=== PATIENT | male | born 1960 | race Caucasian/White ===

== ENCOUNTER 2017-03-22 08:51 | Inpatient (IN) | payer OTHER ==
[~2017-03-22] VITALS: Ht 182.9 cm; Wt 127.0 kg
[2017-03-22] MEDS ORDERED: HYDROmorphone (DILAUDID) 2 MG/ML VIAL ONE ×2 (09:07→09:24)
[2017-03-22] MEDS ORDERED: DEXAMETHASONE 4 MG/ML SDV (DECADRON) IV ONE (10:00)
[2017-03-22] MEDS ORDERED: morphine INJ 10 MG/ML 1ML (SYR OR VIAL) ONE (10:14)
--- NOTE | 2017-03-22 10:22 | ED General ---
General Chief Complaint: General Problems/Pain Stated Complaint: LOW BACK/HIPS/LEGS PAIN Nursing Triage Note: PT TO ED FROM CANCER CENTER, PT HAS SEVERE PAIN IN LOW BACK AND LEGS, HAS HAD RECENT SURG IN AND FOUND OUT HE HAS CA IN BONE IN L SHOULDER, PT IS IN EXCRUICIATING PAIN IN LOW BACK DOES NOT KNOW IF HE HAS CA Nursing Sepsis Screen: No Definite Risk Source of Information: Patient Exam Limitations: No Limitations History of Present Illness Time Seen by Provider: 09:45 Initial Comments The patient is a 56-year-old white male who was sent from the cancer center to the emergency room. He was to be seen there today for the first time on referral from [facility]. His story begins in mid November with the development of pain in his left shoulder. He has had a previous right rotator cuff injury and surgery and I thought this to be that problem on the left. He reported that in the beginning he used some BenGay with some improvement. 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 In about 10 days he was disabled by the pain in his left shoulder and was sent home. He then had a workup in [place] by orthopedics. And based on the findings he was sent to [facility]. He had a biopsy of the left humeral head in early February with the thought that this might be osteomyelitis. Cultures were negative and path studies showed an ad no CVA of unknown origin. He then returned home and was scheduled for his first visit at the cancer center today. He is been taking morphine XR 30 twice daily plus oxycodone for breakthrough pain. This has been increasingly less effective. He now has severe pain in his low back and pain and sciatica type symptoms down the legs. Timing/Duration: Other (since november) Allergies and Home Medications Allergies Coded Allergies: No Known Drug Allergies (Unverified , 03/22/17) Constitutional: see HPI EENTM: no symptoms reported Respiratory: no symptoms reported Cardiovascular: no symptoms reported Gastrointestinal: loss of appetite, nausea Genitourinary: no symptoms reported Musculoskeletal: see HPI, muscle cramps, muscle twitching Skin: no symptoms reported Psychiatric/Neurological: No Symptoms Reported Hematologic/Lymphatic: No Symptoms Reported Immunological/Allergic: no symptoms reported Past Lortzgh-Irifot-Nbtgui Hx Patient Social History Alcohol Use: Denies Use Recreational Drug Use: Yes (past hx) Smoking Status: Former Smoker Type Used: Cigarettes Recent Foreign Travel: No Contact w/Someone Who Travel: No Recent Infectious Disease Expo: No Recent Hopitalizations: Yes (SURG L SHOULDER KU) Seasonal Allergies Seasonal Allergies: No Physical Exam Vital Signs Vital Sign - Last 12Hours 03/22/17 09:10 Temp 98.0 Pulse 79 Resp 20 B/P (MAP) 125/68 Pulse Ox 96 Capillary Refill : Less Than 3 Seconds General Appearance: Severe Distress Eyes: Bilateral Eye Normal Inspection HEENT: Normal ENT Inspection Neck: Full Range of Motion, Normal Inspection, Non Tender, Supple, Carotid Bruit Respiratory: Chest Non Tender, Lungs Clear, Normal Breath Sounds, No Accessory Muscle Use, No Respiratory Distress Cardiovascular: Regular Rate, Rhythm, No Edema, No Gallop, No JVD, No Murmur, Normal Peripheral Pulses Gastrointestinal: Normal Bowel Sounds, No Organomegaly, No Pulsatile Mass, Non Tender, Soft Extremity: Normal Capillary Refill, Normal Inspection, Normal Range of Motion, Non Tender, No Calf Tenderness, No Pedal Edema Skin: Normal Color, Warm/Dry Lymphatic: No Adenopathy Comments He purposely does not move the left arm or shoulder Progress/Results/Core Measures Results/Orders My Orders Orders - ALYSON CAR MD Hydromorphone Injection (Dilaudid Inject (03/22/17 09:07) Hydromorphone Injection (Dilaudid Inject (03/22/17 09:24) Dexamethasone Injection (Decadron Inject (03/22/17 10:00) Cbc With Automated Diff (03/22/17 10:07) Comprehensive Metabolic Panel (03/22/17 10:07) Ua Culture If Indicated (03/22/17 10:07) Medications Given in ED Current Medications Medications Dose Ordered Sig/Darlin Route Start Time Stop Time Status Last Admin Dose Admin Dexamethasone Sodium Phosphate 10 mg ONCE ONCE IV 03/22/17 10:00 03/22/17 10:01 DC 03/22/17 09:57 10 MG Hydromorphone HCl 2 mg STK-MED ONCE .ROUTE 03/22/17 09:07 03/22/17 09:11 DC 03/22/17 09:15 2 MG Hydromorphone HCl 2 mg STK-MED ONCE .ROUTE 03/22/17 09:24 03/22/17 09:28 DC 03/22/17 09:30 2 MG Vital Signs/I&O Vital Sign - Last 12Hours 03/22/17 09:10 Temp 98.0 Pulse 79 Resp 20 B/P (MAP) 125/68 Pulse Ox 96 Blood Pressure Mean: 87 Departure Impression Impression: 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 Referrals: NO,LOCAL PHYSICIAN (PCP/Family) Primary Care Physician ALYSON CAR MD March 22, 2017 10:22
[2017-03-22 10:26] LABS: BASOPHILS % (AUTO) 0 % (0-10); EOSINOPHILS # (AUTO) 0.1 10^3/uL (0.0-0.3); EOSINOPHILS % (AUTO) 1 % (0-10); LYMPHOCYTES # (AUTO) 2.9 X 10^3 (1.0-4.0); LYMPHOCYTES % (AUTO) 14 % (12-44); MEAN CORPUSCULAR HEMOGLOBIN 30 PG (25-34); MEAN CORPUSCULAR HGB CONC 34 G/DL (32-36); MEAN CORPUSCULAR VOLUME 88 FL (80-99); MEAN PLATELET VOLUME 10.3 FL (7.4-10.4); MONOCYTES # (AUTO) 1.4 X 10^3 (0.0-1.0); MONOCYTES % (AUTO) 7 % (0-12); NEUTROPHILS # (AUTO) 16.6 X 10^3 (1.8-7.8); NEUTROPHILS % (AUTO) 79 % (42-75); PLATELET COUNT 359 10^3/uL (130-400); RED BLOOD COUNT 4.45 10^6/uL (4.35-5.85); RED CELL DISTRIBUTION WIDTH 13.7 % (10.0-14.5)
[2017-03-22] MEDS ORDERED: morphine PCA 30 MG/30 ML VIAL IV PRN (10:30)
[2017-03-22 10:47] LABS: ALANINE AMINOTRANSFERASE 18 U/L (0-55); ALBUMIN 3.9 G/DL (3.2-4.5); ANION GAP 12 MMOL/L (5-14); ASPARTATE AMINO TRANSFERASE 17 U/L (5-34); BAND NEUTROPHILS 3 %; BILIRUBIN,TOTAL 0.6 MG/DL (0.1-1.0); BLOOD UREA NITROGEN 18 MG/DL (7-18); BUN/CREATININE RATIO 22; CALCIUM 9.7 MG/DL (8.5-10.1); CARBON DIOXIDE 22 MMOL/L (21-32); CHLORIDE 101 MMOL/L (98-107); CREATININE SERUM 0.83 MG/DL (0.60-1.30); GFR ESTIMATED > 60; GLUCOSE 100 MG/DL (70-105); LYMPHOCYTES % (MANUAL) 12 %; NEUTROPHILS % (MANUAL) 83 %; POTASSIUM 3.7 MMOL/L (3.6-5.0); SODIUM 135 MMOL/L (135-145)
[2017-03-22] MEDS: NS IV 1000 ML 1,000 ML IV SCH ×2 (10:50→21:09)
[2017-03-22] MEDS: NS IV 500 ML PCA CARRIER FLUID IV SCH (10:55)
[2017-03-22] MEDS ORDERED: NALOXONE 0.4 MG/ML 1 ML (NARCAN) VIAL IV PRN (11:00)
[2017-03-22] MEDS ORDERED: ONDANSETRON 4 MG/2 ML (SDV) Z0FRAN IV PRN ×2 (11:00→13:15)
[2017-03-22] MEDS ORDERED: METOCLOPRAMIDE INJ 10 MG/2 ML (REGLAN) IV PRN (11:00)
[2017-03-22] MEDS ORDERED: ALPRAZolam 1 MG (XANAX) TAB PO PRN (11:00)
[2017-03-22] MEDS ORDERED: diphenhydrAMINE 50 MG/ML INJ (BENADRYL) IV PRN (11:00)
[2017-03-22] MEDS: LORazepam INJ 2 MG/ML (ATIVAN) VIAL IVP PRN ×2 (11:02→11:13)
[2017-03-22] MEDS: morphine PCA 30 MG/30 ML VIAL IV PRN ×2 (11:30→17:05)
[2017-03-22 11:50] VITALS: BP 136/84
[2017-03-22 12:50] VITALS: BP 132/87
[2017-03-22] MEDS ORDERED: ACETAMINOPHEN 325 MG TABLET/CAPLET (TYLENOL) PO PRN (13:15)
[2017-03-22] MEDS ORDERED: MILK OF MAGNESIA 400 MG/5 ML 30 ML UDC PO PRN (13:15)
[2017-03-22] MEDS ORDERED: ALPRAZolam 0.25 MG (XANAX) TAB PO PRN (13:15)
[2017-03-22] MEDS ORDERED: PATIENT MAY USE OWN MEDS, ALL PO SCH (13:15)
[2017-03-22] MEDS ORDERED: SENNA W/DOCUSATE (SENOKOT S) TABLET PO PRN (13:15)
[2017-03-22] MEDS ORDERED: diphenhydrAMINE 25 MG TAB (BENADRYL) PO PRN (13:15)
--- NOTE | 2017-03-22 13:23 | Oncology History & Physical ---
Visit Information Visit Information Date of Admission March 22, 2017 at 10:36 Attending Physician Gerry Espinoza MD Admitting Physician Natty,Local Physician Chief Complaint severe pain in the shoulder and back. Newly diagnosed adenocarcinoma of unknown primary Interval History Mr. Samano is a 56 year old white man with newly diagnosed adenocarcinoma of the left shoulder and humerus bone at [facility]. He was discharged from [facility] to us for further evaluation of his cancer primary site and treatment. He came to our cancer center to initial visit today. He was in a lot of pain and screaming in the lobby. We sent him to ER to evaluation and pain control. He received Dilaudid and morphine multiple large doses but his pain is still not nearly under control. He was combative and shaking. So ER admit him to in-pt for pain control. 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 His daughter stated that he quit all of them about 17 years ago. His daughter is in her last year of nursing school. I consulted the patient on: 03/22/17 13:17 Constitutional: malaise Respiratory: cough Cardiovascular: see HPI Gastrointestinal: constipation Musculoskeletal: back pain, muscle pain, muscle stiffness, muscle cramps Psychiatric/Neurological: Anxiety Health Status Allergies Coded Allergies: No Known Drug Allergies (Unverified , 03/22/17) Home Medications Aspirin (Aspirin EC) 81 Mg Tablet.dr, 81 MG PO DAILY, (Reported) Carvedilol (Carvedilol) 12.5 Mg Tablet, 12.5 MG PO BID, (Reported) Clopidogrel Bisulfate (Clopidogrel) 75 Mg Tablet, 75 MG PO DAILY, (Reported) Flaxseed/Omega3,6,9/Fatty Acid (Flax Seed Oil 1,300 mg Softgel) 1 Each Capsule, 1 CAP PO DAILY, (Reported) Losartan Potassium (Losartan Potassium) 50 Mg Tablet, 50 MG PO DAILY, (Reported) Magnesium (Magnesium) 250 Mg Tablet, 250 MG PO DAILY, (Reported) Morphine Sulfate (Morphine Sulfate ER) 30 Mg Tablet.er, 30 MG PO BID, (Reported) Oxycodone HCl/Acetaminophen (Percocet 10-325 mg Tablet) 1 Each Tablet, 2 TAB PO Q4H PRN for PAIN-MODERATE, (Reported) Pravastatin Sodium (Pravastatin Sodium) 10 Mg Tablet, 10 MG PO DAILY, (Reported) Sennosides/Docusate Sodium (Senna-S Tablet) 1 Each Tablet, 1 TAB PO DAILY, ( Reported) Shark Cartilage (Shark Fin Cartilage) 500 Mg Capsule, 500 MG PO DAILY, (Reported ) PRB-Lydkim-Keuxpn Hx Patient Social History Alcohol Use: Denies Use Recreational Drug Use: Yes (past hx) Smoking Status: Current Everyday Smoker Type Used: Cigarettes Recent Foreign Travel: No Contact w/other who traveled: No Recent Infectious Disease Expo: No Recent Hopitalizations: Yes (SURG L SHOULDER [facility]U) Data Review Labs Laboratory Tests 03/22/17 10:15: White Blood Count 21.0H, Hematocrit 39L, Neutrophils (%) (Auto) 79H, Neutrophils # (Auto) 16.6H, Monocytes # (Auto) 1.4H 03/22/17 16:45: Urine Specific [place] 1.010L, Urine RBC (Auto) 2+H, Urine RBC 2-5H Physical Exam Vital Signs Vital Sign - Last 12Hours 03/22/17 03/22/17 09:10 16:16 Temp 98.0 Pulse 79 Resp 20 B/P (MAP) 125/68 Pulse Ox 96 O2 Flow Rate 2.00 Capillary Refill : Less Than 3 Seconds General Appearance: Severe Distress HEENT: PERRL/EOMI Neck: Non Tender, Supple Respiratory: Crackles Cardiovascular: Regular Rate, Rhythm, Tachycardia Gastrointestinal: Non Tender, Distended Extremity: Non Tender, No Calf Tenderness, No Pedal Edema, Other (left should wound draindage) Neurologic/Psychiatric: Alert, Other (pt is very tense) Skin: Other (multiple old scars over his lower extremities. ) Impression & Plan Impression & Plan IMP: 1. Severe pain from the bone mets of the newly diagnosed adenocarcinoma of the left shoulder of unknown primary 2. h/o multiple drug and alcohol abuses and high tolerance to the pain/narcotic medications 3. Left should mild drainage from recent bone lesion biopsy and curettage procedure at [facility] 4. Obese 5. Leukocytosis, ? etiology 6. Anxiety Plan: 1. Admit to 4th floor for pain control with morphine MICA MINER BLASTING 2. Once the pain under control, CT of chest, abd/pelvis looking for the primary site. CT of the head and neck for personal changes and pain. 3. Muscle relaxer and Ativan RPN for anxiety 4. I will f/u CT scan and decide if we need to have antibiotics for leukocytosis 5. pt is full code at this point 6. SCD for DVT prophylax until we clear his head situation. GERRY ESPINOZA MD March 22, 2017 13:22
[2017-03-22 13:50] VITALS: BP 112/61
[2017-03-22] MEDS ORDERED: IOHEXOL 350 MG/ML 100 ML (OMNIPAQUE 350) VIAL IV ONE (14:00)
[2017-03-22] MEDS ORDERED: NS 100 ML (IVPB) BAG IV ONE (14:00)
[2017-03-22] MEDS ORDERED: FLAX1CAP4 PO (14:24)
[2017-03-22] MEDS ORDERED: ASPI-983 PO (14:24)
[2017-03-22] MEDS ORDERED: LOSA50TA36 PO (14:24)
[2017-03-22] MEDS ORDERED: SENN-109 PO (14:24)
[2017-03-22] MEDS ORDERED: PRAV10TA PO (14:24)
[2017-03-22] MEDS ORDERED: SHAR500C PO (14:24)
[2017-03-22] MEDS ORDERED: MAGN250T PO (14:24)
[2017-03-22] MEDS ORDERED: MORP-34 PO (14:24)
[2017-03-22] MEDS ORDERED: OXYC-202 PO (14:24)
[2017-03-22] MEDS ORDERED: CARV12.53 PO (14:24)
[2017-03-22] MEDS ORDERED: CLOP75TA28 PO (14:24)
[2017-03-22 14:50] VITALS: BP 134/86
--- NOTE | 2017-03-22 15:36 | Diagnostic Imaging Report ---
TECHNIQUE: The CT head and cervical spine was performed without and with intravenous contrast. INDICATION: Bone metastasis. Pain in the neck and head area. FINDINGS: CT HEAD: The unenhanced phase demonstrates no intracranial hemorrhage, edema, or mass effect. No hydrocephalus. No extra-axial fluid collection is seen. Post contrast images demonstrate no enhancing mass. The calvarium, paranasal sinuses, and orbits appear grossly unremarkable. CT CERVICAL SPINE: There is straightening of the cervical lordotic curvature. The alignment of the posterior spinal line is satisfactory. There is a compression fracture involving the left side aspect of the C7 vertebral body with preserved height of the right side aspect of this vertebra. This is a pathologic fracture with a destructive lytic lesion seen extending to the anterior aspect of the left pedicle and sparing the right side aspect of the vertebral body. It erodes the posterior wall of the vertebral body as well with probably minimal extension into the anterior epidural space. There is partial bone destruction involving the left pedicle and lamina at this level. No other obvious destructive lesion is seen. There is posterior osteophyte formation and suggestion of disc herniations at multiple levels in the mid to lower cervical spine without high-grade stenosis or cord compression suggested. The evaluation of the thecal sac, however, is limited on this study without intrathecal contrast. The alignment of the facet joints is satisfactory. No widening of the predental space. The alignment of the lateral masses of C1 and C2 is satisfactory. IMPRESSION: CT HEAD: Unremarkable exam. CT CERVICAL SPINE: There is a pathologic mild compression fracture involving the left side aspect of the C7 vertebral body related to underlying destructive mass with extension into the left pedicle and posterior elements. The posterior wall of the vertebra is largely eroded with no definitive significant extension into the spinal canal; however, is better evaluated with an MRI of the cervical spine. The findings were called to Dr. Espinoza at the time of dictation. Dictated by: Dictated on workstation # [id number]
[2017-03-22 16:07] VITALS: BP 119/65
[2017-03-22] MEDS ORDERED: NICOTINE 21 MG (NICODERM) PATCH ONE (16:08)
--- NOTE | 2017-03-22 16:09 | Diagnostic Imaging Report ---
PROCEDURE: CT chest with contrast, CT abdomen and pelvis with and without contrast. TECHNIQUE: Pre and post intravenous contrast axial imaging of the abdomen and pelvis and post contrast axial imaging of the chest were performed. 100 mL of Omnipaque 350 was administered intravenously. INDICATION: Adenocarcinoma, metastases to the left shoulder of unknown origin. FINDINGS: CT chest: There is a 5.6 x 4.3 x 4.8 cm mass in the posterior aspect of the right lower lobe concerning for primary lung cancer. There is surrounding additional area of consolidation, which may relate to pneumonia or atelectasis. There is overall volume loss in the right lung. There is borderline sized right hilar lymph nodes. No significantly enlarged axillary lymph nodes seen. There is no mass, nodule or significant consolidation seen in the left lung. Compensatory hyperexpansion of the left flank is seen. The heart size is normal. No pleural or pericardial effusion. There is a destructive mass involving the anterolateral aspect of the right second rib, measuring 9.2 x 2.6 cm and extending 3 cm craniocaudally. The thoracic spine demonstrates a lytic lesion, measuring 1.4 cm, involving the posterior aspect of the T8 vertebral body with suggestion of slight erosion of the posterior wall of the vertebral body. No obvious extension into the spinal canal. Also posterolateral T12, 2 cm lytic mass is seen. CT abdomen and pelvis: The unenhanced phase demonstrates no urinary tract stones. There is mild dilatation of the urinary bladder. The liver, gallbladder, spleen and pancreas appear unremarkable. There is a nonspecific nodule, measuring 1.1 cm, which appears to be exophytic arising from the right adrenal gland, of uncertain etiology. The kidneys have symmetric enhancement and contrast excretion. There is a calcified rim lesion seen, measuring 1.3 cm in the posterior aspect of the right kidney with suggestion of cystic internal density. No definite solid mass. The abdominal aorta is normal in caliber. No para-aortic significantly enlarged lymph node is seen. There is no bowel obstruction. The appendix is normal. No significant free fluid or fluid collection in the abdomen or pelvis. There is no pelvic lymphadenopathy. There is an infiltrative destructive mass seen around the posterior elements of L3 vertebral body with expanded distraction and nondisplaced pathologic fracture involving the left pedicle and adjacent posterior aspect of L3 vertebral body. Extension of the destructive process into the lamina with distraction and pathologic fracture of the spinous process of L3 is seen. There is concern for soft tissue extension into the spinal canal at this level which can be better evaluated with MRI. Spinal canal stenosis as a result cannot be ruled out. Although accurate measurements of the mass is difficult due to poor definition, estimation of paraspinal soft tissue mass extending over area of 5.8 x 2.7 cm around the posterior elements and to the left of the L3 level is suggested. This also involves the adjacent paraspinal muscles. In the right gluteus brent muscle there is a thin metallic density lesion, measuring 1.9 cm, probably related to previous trauma. There is a lytic mass, measuring 3.5 cm in the posterior aspect of the right acetabulum. It does not appear to extend into the joint of cross-pathologic fracture. A 2.2 cm lytic mass in the supra-acetabular region of the left hip joint is also seen and posterior acetabular lesion, measuring 2.5 cm on the left, is also noted. Other smaller lytic lesions in the pelvis are noted. IMPRESSION: CT chest: 1. A 5.6 cm right lower lobe mass is presumably a primary lung cancer. 2. Lytic metastasis in the thoracic spine and second right rib. CT of the abdomen and pelvis: 1. Large poorly defined mass eroding the posterior elements of L3 vertebral body with extraosseous paraspinal soft tissue components and possible extension into the spinal canal. It is associated with pathologic fracture of the left third pedicle and adjacent posterior lateral aspect of L3 vertebral body. MRI of the lumbar spine is recommended to evaluate extension into the spinal canal. 2. Other osseous metastasis most prominent in both acetabula with no pathologic fracture. The findings were discussed with Dr. Espinoza at time of dictation. Dictated by: Dictated on workstation # [id number]
[2017-03-22 16:52] LABS: BILIRUBIN,URINE NEGATIVE (NEGATIVE); KETONES,URINE NEGATIVE (NEGATIVE); LEUKOCYTE ESTERASE ,URINE NEGATIVE (NEGATIVE); NITRITE,URINE NEGATIVE (NEGATIVE); PH,URINE 7 (5-9); PROTEIN,URINE NEGATIVE (NEGATIVE); UROBILINOGEN,URINE NORMAL (NORMAL)
[2017-03-22 17:02] LABS: SQUAMOUS EPITHELIAL CELL,UR RARE /HPF
[2017-03-22] MEDS ORDERED: FAMOTIDINE 20 MG (PEPCID) TABLET PO PRN (17:15)
[2017-03-22] MEDS: CARVEDILOL 12.5 MG (COREG) TABLET PO SCH (21:06)
[2017-03-22] MEDS: morphine ER 30 MG (MS CONTIN) TAB PO SCH (21:06)
[2017-03-22] MEDS: DEXAMETHASONE 4 MG/ML SDV (DECADRON) IV SCH (21:08)
[2017-03-23 00:13] VITALS: BP 127/73
[2017-03-23] MEDS: morphine PCA 30 MG/30 ML VIAL IV PRN ×4 (03:29→22:38)
[2017-03-23] MEDS: NS IV 500 ML PCA CARRIER FLUID IV SCH ×2 (03:44→14:16)
[2017-03-23] MEDS: DEXAMETHASONE 4 MG/ML SDV (DECADRON) IV SCH (05:49)
[2017-03-23 08:50] VITALS: BP 116/74
[2017-03-23] MEDS ORDERED: SENNA W/DOCUSATE (SENOKOT S) TABLET PO SCH (09:00)
[2017-03-23] MEDS: NICOTINE 21 MG (NICODERM) PATCH TD SCH (09:05)
[2017-03-23] MEDS: SENNA W/DOCUSATE (SENOKOT S) TABLET PO SCH (09:05)
[2017-03-23] MEDS: LOSARTAN 50 MG (COZAAR) TAB PO SCH (09:05)
[2017-03-23] MEDS: morphine ER 30 MG (MS CONTIN) TAB PO SCH ×2 (09:06→20:23)
[2017-03-23] MEDS: CLOPIDOGREL 75 MG (PLAVIX) TABLET PO SCH (09:06)
[2017-03-23] MEDS: CARVEDILOL 12.5 MG (COREG) TABLET PO SCH ×2 (09:06→20:23)
[2017-03-23] MEDS: ASPIRIN E.C. 81 MG (ECOTRIN) TAB PO SCH (09:06)
--- NOTE | 2017-03-23 10:59 | Oncology Progress Note ---
Subjective Subjective/Events-last exam Pain is in much better control as long as he is in rest. He is having a lot of pain when he moves. Awaiting for rad/onc consultation for palliative pain control. Used 99.8mg NEWSSTAND VENDOR morphine over 24 hrs in addition to MS Contin 30mg bid since last night. Pt wants to talk to social contact worker to file disability Data Review Labs Laboratory Tests 03/22/17 10:15: White Blood Count 21.0H, Hematocrit 39L, Neutrophils (%) (Auto) 79H, Neutrophils # (Auto) 16.6H, Monocytes # (Auto) 1.4H 03/22/17 16:45: Urine Specific [place] 1.010L, Urine RBC (Auto) 2+H, Urine RBC 2-5H Physical Exam Vital Signs Vital Sign - Last 12Hours 03/22/17 03/22/17 09:10 16:16 Temp 98.0 Pulse 79 Resp 20 B/P (MAP) 125/68 Pulse Ox 96 O2 Flow Rate 2.00 Capillary Refill : Less Than 3 SecondsLess Than 3 Seconds General Appearance: No Apparent Distress HEENT: PERRL/EOMI Neck: Non Tender, Supple Respiratory: Chest Non Tender, No Accessory Muscle Use, No Respiratory Distress , Crackles Gastrointestinal: Non Tender, Soft Back: Muscle Spasm, Vertebral Tenderness Neurologic/Psychiatric: Alert, Oriented x3 Impression & Plan Impression & Plan IMP: 1. Severe pain from the extensive bone mets of the newly diagnosed adenocarcinoma of the RLL of the lung. Pain is much better now after NEWSSTAND VENDOR morphine and Decadron 2. h/o multiple drug and alcohol abuses and high tolerance to the pain/narcotic medications 3. Left should mild drainage from recent bone lesion biopsy and curettage procedure at [facility] 4. Obese 5. Leukocytosis, 2nd to steroid. 6. Anxiety Plan: 1. Converting morphine NEWSSTAND VENDOR to oral morphine and prepare to discharge home tomorrow. Continue Decadron until radiation takes into effect. 2. F/U at cancer center next for radiation treatment and then chemo. 3. Muscle relaxer and Ativan RPN for anxiety 4. Constipation prophylaxis. 5. Pt is full code at this point 6. SCD for DVT prophylax until we clear his head situation. 7. lock up worker consult for disability and discharge plan. Clinical Quality Measures DVT/VTE Risk/Contraindication: Risk Factor Score Per Nursin RFS Level Per Nursing on Admit: 4+=Very High EL JAVED MD March 23, 2017 10:59
--- NOTE | 2017-03-23 11:17 | Physical Therapy Evaluation ---
PT Evaluation-General Medical Diagnosis Admission Date March 22, 2017 at 10:36 Medical Diagnosis: intractable pain Onset Date: March 22, 2017 Therapy Diagnosis Therapy Diagnosis: impaired mobility, strength, endurance Height/Weight Height (Feet): 6 Height (Inches): 0.00 Weight (Pounds): 280 Weight (Ounces): 0.0 Precautions Precautions/Isolations: Fall Prevention, Standard Precautions Referral Physician: Gerry Espinoza MD Reason for Referral: Evaluation/Treatment Medical History Pertinent Medical History: Smoking Additional Medical History hx of drug and alcohol abuse, obesity, surg (left shoulder surgery at ) Current History went to ER with pain in shoulder from the cancer center, patient has newly diagnosed adenocarcinoma in left shoulder Reviewed History: Yes Social History Home: Single Level Current Living Status: Other Family Entry Into Home: Ramp Patient will be living with his daughter and her family. Prior/Core FIM Prior Level of Function Functional Cook Measure 0=Not Assessed/NA 4=Minimal Assistance 1=Total Assistance 5=Supervision or Setup 2=Maximal Assistance 6=Modified Cook 3=Moderate Assistance 7=Complete Cook Bed Mobility: 1 Transfers (B,C,W/C) (FIM): 1 Gait: 1 Patient states he has not been very mobile and has been in a wheelchair most of the time. PT Evaluation-Current Subjective Patient in bed pre tx, agrees to PT, has pain of 9/10 in both legs and left shoulder. Patient is very anxious. Pt/Family Goals reduce pain Objective Patient Orientation: Person, Place, Situation Attachments: Oxygen, Joy Catheter, IV ROM/Strength ROM Lower Extremities NT due to pain Strenght Lower Extremities NT due to pain Integumentary/Posture Bladder Incontinence: Joy Cath Neuromuscular (Tone, Coordination, Reflexes) NT Sensory Vision: Wears Glasses Hearing: Functional Sensation Right Lower Extremit: Impaired Sensation Left Lower Extremity: Impaired Sensation Lower Extremities Patient states he has numbness in both legs from the ankles down. Transfers Functional Cook Measure 0=Not Assessed/NA 4=Minimal Assistance 1=Total Assistance 5=Supervision or Setup 2=Maximal Assistance 6=Modified Cook 3=Moderate Assistance 7=Complete Cook Transfers (B, C, W/C) (FIM): 2 Scootin Rollin Supine to/from Sit: 2 Patient needed max assist for all bed mobility, cannot assist with left shoulder due to pain. Patient has intense pain. He was able to sit at the edge of the bed for a short time before needing to lay down again due to the pain. Balance Sitting Static: Fair Sitting Dynamic: Fair Assessment/Needs Patient needs max assist for bed mobility, he has intense pain and cannot tolerate much activity. Rehab Potential: Poor PT Intermediate Goals Intermediate Goals PT Intermediate Goals Time Frame: Mar 30, 2017 Transfers (B,C,W/C) (FIM): 4 Gait (FIM): 1 Distance: 20' Gait Level of Assist: 4 Gait Assistive Device: FWW PT Plan Problem List Problem List: Activity Tolerance, Functional Strength, Safety, Balance, Gait, Transfer, Bed Mobility, ROM Treatment/Plan Treatment Plan: Continue Plan of Care Treatment Plan: Bed Mobility, Education, Functional Activity Charley, Functional Strength, Gait, Safety, Therapeutic Exercise, Transfers Treatment Duration: Mar 30, 2017 # of days/week 5-6 Visits Per Week: 10-11 Minutes/Day (M-F): 15-30 Minutes/Day (Sat/[place]): 15-30 Pt/Family Agrees w/Plan: Yes Safety Risks/Education Patient Education: Transfer Techniques, Correct Positioning, Safety Issues Teaching Recipient: Patient Teaching Methods: Demonstration, Discussion Response to Teaching: Reinforcement Needed Discharge Recommendations Plan Patient will perform bed mobility and transfer training, balance and endurance training, functional strengthening, stair training, gait training, and education , to improve functional mobility and independence at home. Therapy D/C Recommendations: Home w/ Family Support Time/GCodes Time In: 1055 Time Out: 1110 Total Billed Treatment Time: 15 Total Billed Treatment 1 visit [facility] BR[facility] PLEITEZ PT March 23, 2017 11:17
--- NOTE | 2017-03-23 11:22 | Progress Note-Standard ---
Standard Progress Note Progress Notes/Assess & Plan Progress/Assessment & Plan RADIATION ONCOLOGY PROGRESS NOTE Assessment Extensive bone metastases from probable lung cancer primary Associated pain Brief history *56 y/o white male [place], [place] resident * 03/06/17 Open biopsy, curettage and bone graft left proximal humerus performed by Dr. Boone at [facility] - pathology: metastatic adenocarcinoma * given patient's home in [place], [place] he preferred treatment closer to home; med onc referral made with Dr. Espinoza * 03/22/17 patient presented to [facility] for outpatient med onc consult; due to uncontrolled pain he was admitted * 03/22/17 CT head / cervical spine - negative for brain mets - pathologic compression fx C7 * 03/22/17 CT C/A/P - identified a RLL lung mass - multiple areas of osseous disease Subjective: * Patient reports CRUSHED STONE GRADER pump pain meds have improved pain. * Rating a 3 at time of visit but still can get up to a 7 quickly. * Reports areas of worst pain at this time are: left upper arm, left hip and right leg. * Having issues with constipation r/t pain meds and inactivity. Plan: * Discussed general palliative radiation plan and possible xrt side effects with pt. * Dr. Yu has reviewed radiographic studies and plans on treating at least 3- 4 sites. Delivering up to 2 weeks of treatment. * Will bring patient down to rad onc department tomorrow for formal consult with Dr. Yu and a treatment planning ct simulation. * Patient in agreement with this plan. * Patient concerned about getting disability paperwork started. I contacted Dr. Espinoza. She will place a social work consult to assist the patient in this. Final Diagnosis Bone metastases with associated pain from probable lung cancer primary. FROYLAN ROSS RN, DAIRY EQUIPMENT MECHANIC March 23, 2017 11:22
[2017-03-23] MEDS: DEXAMETHASONE 4 MG TAB (DECADRON) PO SCH ×2 (14:13→22:32)
--- NOTE | 2017-03-23 15:02 | Physical Therapy Daily Note ---
PT Daily Note-Current Subjective Patient in bed pre tx, has 3/10 pain at rest but gets worse with activity. Patient agrees to bed exercises as this time. Appearance Patient in bed post tx with nurse call, phone, tray, family in the room. Mental Status Patient Orientation: Normal For Age Attachments: Oxygen, Joy Catheter, IV Transfers Functional [place] Measure 0=Not Assessed/NA 4=Minimal Assistance 1=Total Assistance 5=Supervision or Setup 2=Maximal Assistance 6=Modified [place] 3=Moderate Assistance 7=Complete IndependenceIRFPAI Quality Coding Scale 6 Independent with activity with or without an assistive device 5 Patient requires set up or clean up by helper. Patient completes activity by themselves 4 Supervision or touching assist (CGA). [place] provide cues , steadying assist 3 The helper provides less than half the effort to complete the activity 2 The helper provides more than half the effort to complete the activity 1 Dependent. The helper does all the effort to complete an activity 7 Patient refused to complete or attempt activity 9 The patient did not perform the activity before the current illness or injury 88 Not attempted due to Medical conditions or safety concerns Exercises Supine Ex: Ankle pumps, Quad Set, Glut sets, Heel Slides, Short Arc Quads, Straight leg raise, Hip abd/add Supine Reps: 10 Treatments functional strengthening Assessment Current Status: Poor Progress patient weaker on the left side PT Alf Goals Alf Goals PT Alf Goals Time Frame: Mar 30, 2017 Transfers (B,C,W/C) (FIM): 4 Gait (FIM): 1 Distance: 20' Gait Level of Assist: 4 Gait Assistive Device: FWW PT Plan Problem List Problem List: Activity Tolerance, Functional Strength, Safety, Balance, Gait, Transfer, Bed Mobility, ROM Treatment/Plan Treatment Plan: Continue Plan of Care Treatment Plan: Bed Mobility, Education, Functional Activity Charley, Functional Strength, Gait, Safety, Therapeutic Exercise, Transfers Treatment Duration: Mar 30, 2017 Visits Per Week: 10-11 Minutes/Day (M-F): 15-30 Minutes/Day (Sat/[place]): 15-30 Safety Risks/Education Patient Education: Correct Positioning, Safety Issues Teaching Recipient: Patient Teaching Methods: Demonstration Response to Teaching: Reinforcement Needed Time/GCodes Time In: 1440 Time Out: 1455 Total Billed Treatment Time: 15 Total Billed Treatment 1 visit EX 15' BRUNILDA KIRKLAND PT March 23, 2017 15:02
[2017-03-23 15:54] VITALS: BP 104/61
[2017-03-24] VITALS: BP 124/59
[2017-03-24] MEDS: LORazepam INJ 2 MG/ML (ATIVAN) VIAL IVP PRN (01:07)
[2017-03-24 04:05] VITALS: BP 112/65
[2017-03-24] MEDS: DEXAMETHASONE 4 MG TAB (DECADRON) PO SCH (05:44)
[2017-03-24] MEDS: NS IV 500 ML PCA CARRIER FLUID IV SCH (07:10)
[2017-03-24] MEDS: morphine PCA 30 MG/30 ML VIAL IV PRN (07:13)
[2017-03-24 08:45] VITALS: BP 128/65
[2017-03-24] MEDS ORDERED: NCT21TD TD ×2 (10:03→10:49)
--- NOTE | 2017-03-24 10:06 | Oncology Discharge Summary ---
Diagnosis/Chief Complaint Date of Admission March 22, 2017 at 10:36 Date of Discharge mar 24 2017 Discharge Diagnosis 1. Severe pain from the extensive bone mets of the newly diagnosed adenocarcinoma of the RLL of the lung. 2. h/o multiple drug and alcohol abuses and high tolerance to the pain/narcotic medications 3. Left should mild drainage from recent bone lesion biopsy and curettage procedure at [facility] 4. Obese 5. Leukocytosis, 2nd to steroid. 6. Anxiety Reason Hospital Visit Mr. Samano is a 56 year old white man admitted from ER on 03/22/17 for pain control and adenocarcinoma from the left shoulder bone biopsy at [facility]. He was also having anxiety attacks. He has h/o multidrug abuses in the past but quit 17 years ago. He was treated with high doses of morphine at ER followed by morphine CLEAT BLANKER along with Ativan, Xanax. We also did CT scans of head, neck, chest , abd/pelvis looking for the primary site of the cancer. He had a 5cm mass at RLL presumable to be the primary. He also had extensive bone mets in the cervical and lumbar spine as well as ribs. His pain was much improved with the CLEAT BLANKER morphine and he could have two nights of good sleep. However, he is still in lot of pain whenever he moves. So Rad/Onc was consulted to radiation pain control 03/23/2017 and he had radiation planning 03/24/17. Pt wants to go home after the radiation planning and come back to cancer center next week to start his radiation treatment. Decadron was also added as part of pain control. He was discharged home with wheel walker and home oxygen because his O2 sat was 80 % on room air. His new medication: 1. Morphine ER 60mg tid PO 2. Morphine IR 15mg q4hr PRN 3. Xanax 1mg po tid 4. Ativan 1mg po tid PRN for anxiety attack and muscle spasm 5. Decadron 4mg tid po with food. 6. Pepcid 40mg po qd. 7. Constipation prophylaxis. Pt is full code at this point F/u with Dr Espinoza at cancer center next Mon03/28/2017 at 10am. He will also start his radiation treatment on that day. I spent 90 mins on his discharge. 9:00-10:33am on 03-24-2017 Discharge Summary Discharge Instructions to patient/family Please see electonic discharge instructions given to patient. Discharge Medications Reviewed and agree with Discharge Medication list on patient's Discharge Instruction sheet Clinical Quality Measures DVT/VTE Risk/Contraindication: Risk Factor Score Per Nursin RFS Level Per Nursing on Admit: 4+=Very High Other: ON PLAVIX EL ESPINOZA MD March 24, 2017 10:06
[2017-03-24] MEDS ORDERED: FAMO40TA72 PO (10:49)
[2017-03-24] MEDS ORDERED: LORA-405 PO (10:49)
[2017-03-24] MEDS ORDERED: MORP60TA52 PO (10:49)
[2017-03-24] MEDS ORDERED: ALPR1TAB2 PO (10:49)
[2017-03-24] MEDS ORDERED: MORP15TA PO (10:49)
[2017-03-24] MEDS ORDERED: DEXA4TAB PO (10:49)
[2017-03-24] MEDS: CARVEDILOL 12.5 MG (COREG) TABLET PO SCH (11:24)
[2017-03-24] MEDS: NICOTINE 21 MG (NICODERM) PATCH TD SCH (11:24)
[2017-03-24] MEDS: morphine ER 30 MG (MS CONTIN) TAB PO SCH (11:24)
[2017-03-24] MEDS: ASPIRIN E.C. 81 MG (ECOTRIN) TAB PO SCH (11:24)
[2017-03-24] MEDS: SENNA W/DOCUSATE (SENOKOT S) TABLET PO SCH (11:24)
[2017-03-24] MEDS: LOSARTAN 50 MG (COZAAR) TAB PO SCH (11:24)
[2017-03-24] MEDS: CLOPIDOGREL 75 MG (PLAVIX) TABLET PO SCH (11:24)
--- NOTE | 2017-03-24 12:49 | History & Physicial ---
History of Present Illness History of Present Illness Reason for visit/HPI Diagnosis: Extensive bone metastases from unknown primary Associated pain Left humeral biopsy proved metastatic adenocarcinoma HPI: * 56 y/o white male [place], [place] resident who presented to his PCP Dr. Gaston in early January with pain in the left shoulder for over 2 months. The pain was increasing in severity. A mass was palpable. Referral was made to Dr. Satnam Boone at [facility]. * Radiographic studies identified a lesion in the left proximal humerus. * 03/06/17 Open biopsy, curettage and bone graft left proximal humerus was performed. - Pathology: metastatic adenocarcinoma (see scanned document for IHC stains performed) * Pathology was discussed with the patient. Given the patient's home in [place], [place] he preferred treatment closer to home. Explained need for further radiographic testing and referral to medical oncology. * 03/22/17 The patient presented to [facility] for an outpatient consult with med onc Dr. Javed. Due to uncontrolled pain while in the waiting room he was taken to the ER. He was admitted for pain control. * 03/22/17 CT C/A/P CT chest: 1. A 5.6 cm right lower lobe mass is presumably a primary lung cancer. 2. Lytic metastasis in the thoracic spine and second right rib. CT of the abdomen and pelvis: 1. Large poorly defined mass eroding the posterior elements of L3 vertebral body with extraosseous paraspinal soft tissue components and possible extension into the spinal canal. It is associated with pathologic fracture of the left third pedicle and adjacent posterior lateral aspect of L3 vertebral body. MRI of the lumbar spine is recommended to evaluate extension into the spinal canal. 2. Other osseous metastasis most prominent in both acetabula with no pathologic fracture. * 03/22/17 CT head / cervical spine CT HEAD: Unremarkable exam. CT CERVICAL SPINE: There is a pathologic mild compression fracture involving the left side aspect of the C7 vertebral body related to underlying destructive mass with extension into the left pedicle and posterior elements. The posterior wall of the vertebra is largely eroded with no definitive significant extension into the spinal canal; however, is better evaluated with an MRI of the cervical spine. * The patient was initiated on Decadron due to radiographic findings in the spine. * A radiation oncology referral was made for evaluation and consideration of palliative / prophylactic radiotherapy; thus my visit with the patient today. Date of Admission March 22, 2017 at 10:36 I consulted on this patient on 03/24/17 9:43 Attending Physician Gerry Javed MD Admitting Physician No,Local Physician Consult Mario Yu MD Radiation Oncology Allergies and Home Medications Allergies Coded Allergies: No Known Drug Allergies (Unverified , 03/22/17) Home Medications Alprazolam 1 Mg Tablet, 1 MG PO TID, #90 Prescribed by: ALYSE NARAYAN on 03/24/17 1049 Aspirin 81 Mg Tablet.dr, 81 MG PO DAILY, (Reported) Carvedilol 12.5 Mg Tablet, 12.5 MG PO BID, (Reported) Clopidogrel Bisulfate 75 Mg Tablet, 75 MG PO DAILY, (Reported) Dexamethasone 4 Mg Tablet, 4 MG PO TID, #30 Prescribed by: ALYSE NARAYAN on 03/24/17 1049 Famotidine 40 Mg Tablet, 40 MG PO DAILY, #30 Prescribed by: ALYSE NARAYAN on 03/24/17 1049 Flaxseed/Omega3,6,9/Fatty Acid 1 Each Capsule, 1 CAP PO DAILY, (Reported) Lorazepam 1 Mg Tablet, 1 MG PO TID, #30 Prescribed by: ALYSE NARAYAN on 03/24/17 1049 Losartan Potassium 50 Mg Tablet, 50 MG PO DAILY, (Reported) Magnesium 250 Mg Tablet, 250 MG PO DAILY, (Reported) Morphine Sulfate 15 Mg Tablet, 15 MG PO Q4H, #180 Prescribed by: ALYSE NARAYAN on 03/24/17 1049 Morphine Sulfate 60 Mg Tablet.er, 60 MG PO Q8H, #90 Prescribed by: ALYSE NARAYAN on 03/24/17 1049 Nicotine 1 Each Patch.td24, 21 MG TD DAILY for 14 Days, Ref 2 Prescribed by: MORGAN JAVED on 03/24/17 1003 Pravastatin Sodium 10 Mg Tablet, 10 MG PO DAILY, (Reported) Sennosides/Docusate Sodium 1 Each Tablet, 1 TAB PO DAILY, (Reported) Shark Cartilage 500 Mg Capsule, 500 MG PO DAILY, (Reported) Past Rdbcpaj-Hrowef-Zrhsso Hx Patient Social History Marrital Status: (8-9 years) Number of Children: 2 (Son - Chris age 30. Daughter -Kimberly age 35. he lives w/ daughter and her family on their farm in [place], [place]. She has 3 boys with one in HS that has been helping the pt with transferring. Kimberly is an PUBLIC POLICY MEDIATOR going back to school for her RN. She has one more year.) Number of living children: 2 Employed/Student: unemployed (Not working. 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 He has worked at [employer]. He is part of the [employer] on [employer].), part- time employed Alcohol Use: Past History Recreational Drug Use: Yes (past hx of meth and cocaine - none for 17 years; currently smokes marajuana daily for pain) Drug of Choice: meth, cocaine, marijuana Smoking Status: Current Everyday Smoker Type Used: Cigarettes Physical Abuse Screen: No Sexual Abuse: No Recent Foreign Travel: No Contact w/other who traveled: No Recent Hopitalizations: Yes (SURG L SHOULDER KU) Recent Infectious Disease Expo: No Seasonal Allergies Seasonal Allergies: No Surgeries HX Surgeries: Yes (Left shoulder/humerus biopsy - Left lower leg surgery for infection 2008 - Right lower jaw cyst removal 2000) Surgeries: Abdominal (Umbilical Herniar Repair 1992) Respiratory Hx Respiratory Disorders: Yes Respiratory Disorders: COPD, Pneumonia (2016) Cardiovascular Hx Cardiovascular Disorders: Yes Cardiac Disorders: Congenital Heart Disease, Deep Vein Thrombosis, High Cholesterol, Hypertension Neurological Hx Neurological Disorders: No Reproductive System Hx Reproductive Disorders: No Sexually Transmitted Disease: No HIV/AIDS: No Genitourinary Hx Genitourinary Disorders: No Gastrointestinal Hx Gastrointestinal Disorders: No Musculoskeletal Hx Musculoskeletal Disorders: Yes Musculoskeletal Disorders: Chronic Back Pain, Spasms (lower legs) Endocrine Hx Endocrine Disorders: No HEENT HX ENT Disorders: No Loss of Vision: Denies Cancer Hx Cancer: No Psychosocial Hx Psychiatric Problems: No Integumentary HX Skin/Integumentary Disorder: No Family Medical History Significant Family History: Cancer (mother - stomach), COPD (mother, sister) Family Hx: Patient reports no known family medical history. Constitutional: chills, dizziness, weakness, weight loss Respiratory: cough, dyspnea on exertion Cardiovascular: palpitations Gastrointestinal: constipation, dysphagia (difficulty swallowing), loss of appetite Musculoskeletal: back pain, muscle cramps, other (pain left shoulder/upper arm - mid back - lower back - left hip - right leg) Skin: dryness All Other Systems Reviewed Negative Unless Noted: Yes (Negative excepted noted.) Physical Exam Vital Signs Vital Sign - Last 12Hours 03/22/17 03/22/17 09:10 16:16 Temp 98.0 Pulse 79 Resp 20 B/P (MAP) 125/68 Pulse Ox 96 O2 Flow Rate 2.00 Capillary Refill : Less Than 3 SecondsLess Than 3 Seconds General Appearance: WD/WN, Moderate Distress (with movement), Obese, Other ( white male who appears older than stated age; well developed; well nourished; accompanied by his daugther, [id number]-imb and grandson) Eyes: Bilateral Eye PERRL (wearing glasses) HEENT: Other (atraumatic, normocephalic, male pattern baldness; teeth in poor repair) Neck: Full Range of Motion, Non Tender Respiratory: No Accessory Muscle Use, No Respiratory Distress Genital/Rectal: Other (magallanes catheter in place to BSD - clear yellow urine) Back: Vertebral Tenderness (Thoracolumbar spine) Extremity: Normal Capillary Refill, Other (moves all extremities - left arm mobility decreased due to pain) Neurologic/Psychiatric: Alert, Oriented x3, Normal Mood/Affect, college president II-XII Norm as Tested, Other (did not observe patient walking - he was on stretcher ) Skin: Normal Color, Warm/Dry Assessment/Plan Assessment and Plan * 56 y/o male with extensive bone metastases from unknown primary * RLL lung mass noted on CT * Left humerus biopsy proved metastatic adenocarcinoma * Associated pain PLAN: * Discussed with patient and family need for palliative / prophylactic xrt to diminish further tumor destruction and hopefully help with his pain. * He was offered a two week course of treatment. * We would attempt to deliver 30 Gy / 10 fxs. * He has multiple sites of pain. After reviewing his radiographic studies and assessing the patient; I explained to the patient and family I feel we should treat at least four sites to begin with then go from there. They are in agreement. * We will treat C7, the left proximal humerus/shoulder, and disease in the thoracolumbar spine ( T12 / L3) . * A treatment planning ct simulation to be performed today. * Dr. Javed has made plans for him to be discharged today home per patient request. * Dr. Javed is looking at treating the patient with Keytruda. She has noted that on trial KEYNOTE-021 (G1) study design patients who received more than 30 Gy of thoracic radiation within 26 weeks were ineligible for the trial and requested our xrt dose to the thorax dose not exceed 30 Gy. * We will bring him back on Wednesday 03/28 afternoon for his first treatment. Problems: Admission Diagnosis * Uncontrolled pain * Newly diagnosed metastatic adenocarcinoma left humerus from unknown primary Clinical Quality Measures DVT/VTE Risk/Contraindication: Risk Factor Score Per Nursin RFS Level Per Nursing on Admit: 4+=Very High Other: ON PLAVIX MARIO YU MD March 24, 2017 12:49
== END 2017-03-24 12:18 | disposition home or self-care (01) | DRG 948 ==
LOC: EDUNIT# 08:51 → ER 08:56 → 4TH 10:36
PROVIDERS: ADMIT Internal Medicine Hematology & Oncology; ATTEND Internal Medicine Hematology & Oncology
DX: G89.3 Neoplasm related pain (acute) (chronic) (principal); C79.51 Secondary malignant neoplasm of bone; C34.31 Malignant neoplasm of lower lobe, right bronchus or lung; M84.58XA Pathological fracture in neoplastic disease, other specified site, initial encounter for fracture; F41.9 Anxiety disorder, unspecified; I10 Essential (primary) hypertension; J44.9 Chronic obstructive pulmonary disease, unspecified; K59.03 Drug induced constipation; D72.829 Elevated white blood cell count, unspecified; F17.210 Nicotine dependence, cigarettes, uncomplicated; T38.0X5A Adverse effect of glucocorticoids and synthetic analogues, initial encounter
CPT/HCPCS: 36415; 70470; 71260; 72127; 74178; 80053; 81000; 85007; 85027; 94760; 94761; 99214

== ENCOUNTER 2017-04-04 13:17 | Outpatient (RCR) | payer OTHER ==
[~2017-04-04 13:17] MED LIST: ALPR1TAB2 PO; ASPI-983 PO; CARV12.53 PO; CLOP75TA28 PO; DEXA4TAB PO; FAMO40TA72 PO; FLAX1CAP4 PO; LORA-405 PO; LOSA50TA36 PO; MAGN250T2 PO; MORP-34 PO; MORP15TA PO; MORP60TA52 PO; NCT21TD TD; OXYC-202 PO; PRAV10TA PO; SENN-109 PO; SHAR500C PO
[2017-04-04 14:02] LABS: BASOPHILS # (AUTO) 0.1 10^3/uL (0.0-0.1); BASOPHILS % (AUTO) 0 % (0-10); EOSINOPHILS # (AUTO) 0.1 10^3/uL (0.0-0.3); EOSINOPHILS % (AUTO) 1 % (0-10); LYMPHOCYTES # (AUTO) 0.6 X 10^3 (1.0-4.0); LYMPHOCYTES % (AUTO) 3 % (12-44); MEAN CORPUSCULAR HEMOGLOBIN 31 PG (25-34); MEAN CORPUSCULAR HGB CONC 34 G/DL (32-36); MEAN CORPUSCULAR VOLUME 91 FL (80-99); MEAN PLATELET VOLUME 10.5 FL (7.4-10.4); MONOCYTES # (AUTO) 0.8 X 10^3 (0.0-1.0); MONOCYTES % (AUTO) 4 % (0-12); NEUTROPHILS % (AUTO) 92 % (42-75); PLATELET COUNT 208 10^3/uL (130-400); RED BLOOD COUNT 4.33 10^6/uL (4.35-5.85); RED CELL DISTRIBUTION WIDTH 15.3 % (10.0-14.5); WHITE BLOOD COUNT 20.5 10^3/uL (4.3-11.0)
[2017-04-04 14:43] LABS: ALANINE AMINOTRANSFERASE 20 U/L (0-55); ALBUMIN 3.4 G/DL (3.2-4.5); ANION GAP 12 MMOL/L (5-14); ASPARTATE AMINO TRANSFERASE 19 U/L (5-34); BILIRUBIN,TOTAL 0.6 MG/DL (0.1-1.0); BLOOD UREA NITROGEN 17 MG/DL (7-18); BUN/CREATININE RATIO 25; CARBON DIOXIDE 23 MMOL/L (21-32); CHLORIDE 101 MMOL/L (98-107); CREATININE SERUM 0.67 MG/DL (0.60-1.30); GFR ESTIMATED > 60; GLUCOSE 145 MG/DL (70-105); POTASSIUM 4.5 MMOL/L (3.6-5.0); SODIUM 136 MMOL/L (135-145); TOTAL PROTEIN 6.5 G/DL (6.4-8.2)
[2017-04-06] MEDS ORDERED: Morphine IR PO (14:59)
[2017-04-06] MEDS ORDERED: MORP60CA18 PO (14:59)
[2017-04-06] MEDS ORDERED: CEFD300C3 PO (15:51)
== END 2017-06-20 | disposition home or self-care (01) ==
LOC: ONC 13:17
PROVIDERS: ATTEND Internal Medicine Hematology & Oncology
DX: Z51.0 Encounter for antineoplastic radiation therapy (principal); C34.31 Malignant neoplasm of lower lobe, right bronchus or lung; C79.51 Secondary malignant neoplasm of bone
CPT/HCPCS: 36415; 77295; 77334; 77336; 77417; 77470; 80053; 82378; 85025; 99213

== ENCOUNTER 2017-04-06 10:13 | Emergency (ER) | payer OTHER ==
[~2017-04-06] VITALS: Ht 182.9 cm; Wt 127.0 kg
[~2017-04-06 10:13] MED LIST changes: +MAGN250T PO; -MAGN250T2 PO
[2017-04-06] MEDS: HYDROmorphone (DILAUDID) 2 MG/ML VIAL IVP ONE (10:56)
--- NOTE | 2017-04-06 12:05 | ED Upper Extremity ---
General Chief Complaint: Upper Extremity Stated Complaint: FALL Nursing Triage Note: ADM TO ED PER [facility] PATIENT HAS PMH OF CA LUNG WITH METS TO BONE. HAD SURG IN FEBRUARY AT [facility] ON L SHOULDER WHEN BIOSPY SLING IN PLACE WITH BRUISNG TO R SHOULDER. REPORTS AFTER SHOULDER SURG HAS LEGS ARE WEAKER AND UNABLE TO STAND WITHOUT HELP. YESTERDAY WAS TRYING TO STAND TO GO TO BATHROOM LOST BALANCE AND FELL ON R SHOULDER. MEDS GIVEN BY EMS Nursing Sepsis Screen: No Definite Risk History of Present Illness Time seen by provider: 12:00 Initial Comments The patient is a 57-year-old white male known to me from a visit 2 weeks ago. He had the onset of left shoulder pain at approximately October 30. Initially he treated this with an day and got some relief although decreasingly so. By November he took a [employer] job in [place] and has become home before completing his commitment. X-rays showed abnormality and he saw an orthopedic surgeon in [place]. Apparently osteomyelitis was considered and the patient was sent to [facility]. Cultures were negative but bone biopsy showed adenocarcinoma. When he appeared here he was in extreme pain in the first for a business was addressing his pain issues. He was also started with radiation treatment to the left shoulder and has had 5 treatments. Yesterday on his way here he stopped at a rest stop to urinate. He became unbalanced and although it was not a hard fall and mostly to the right shoulder, he began to have severe pain on being helped back to his feet. That has continued through today Onset: yesterday Pain/Injury Location: bilateral shoulder Method of Injury: fell Allergies and Home Medications Allergies Coded Allergies: No Known Drug Allergies (Unverified , 03/22/17) Home Medications Alprazolam 1 Mg Tablet, 1 MG PO TID, #90 Prescribed by: ALYSE NARAYAN on 03/24/17 1049 Aspirin 81 Mg Tablet.dr, 81 MG PO DAILY, (Reported) Carvedilol 12.5 Mg Tablet, 12.5 MG PO BID, (Reported) Clopidogrel Bisulfate 75 Mg Tablet, 75 MG PO DAILY, (Reported) Dexamethasone 4 Mg Tablet, 4 MG PO TID, #30 Prescribed by: ALYSE NARAYAN on 03/24/17 1049 Famotidine 40 Mg Tablet, 40 MG PO DAILY, #30 Prescribed by: ALYSE NARAYAN on 03/24/17 1049 Flaxseed/Omega3,6,9/Fatty Acid 1 Each Capsule, 1 CAP PO DAILY, (Reported) Lorazepam 1 Mg Tablet, 1 MG PO TID, #30 Prescribed by: ALYSE NARAYAN on 03/24/17 1049 Losartan Potassium 50 Mg Tablet, 50 MG PO DAILY, (Reported) Magnesium 250 Mg Tablet, 250 MG PO DAILY, (Reported) Morphine Sulfate 15 Mg Tablet, 15 MG PO Q4H, #180 Prescribed by: ALYSE NARAYAN on 03/24/17 1049 Morphine Sulfate 60 Mg Tablet.er, 60 MG PO Q8H, #90 Prescribed by: ALYSE NARAYAN on 03/24/17 1049 Nicotine 1 Each Patch.td24, 21 MG TD DAILY for 14 Days, Ref 2 Prescribed by: MORGAN JAVED on 03/24/17 1003 Pravastatin Sodium 10 Mg Tablet, 10 MG PO DAILY, (Reported) Sennosides/Docusate Sodium 1 Each Tablet, 1 TAB PO DAILY, (Reported) Shark Cartilage 500 Mg Capsule, 500 MG PO DAILY, (Reported) Constitutional: see HPI EENTM: no symptoms reported Respiratory: other Gastrointestinal: loss of appetite Genitourinary: no symptoms reported Musculoskeletal: see HPI, joint pain, joint swelling Skin: other (erythema and left shoulder radiation site) Psychiatric/Neurological: No Symptoms Reported Past Pqathhi-Xfhppm-Fvpigc Hx Patient Social History Alcohol Use: Occasionally Uses Recreational Drug Use: No Drug of Choice: meth, cocaine, marijuana /17 YEARS AGO Smoking Status: Current Everyday Smoker Type Used: Cigarettes Recent Foreign Travel: No Contact w/Someone Who Travel: No Recent Infectious Disease Expo: No Recent Hopitalizations: Yes (SURG L SHOULDER KU) Seasonal Allergies Seasonal Allergies: No Surgeries HX Surgeries: Yes Surgeries: Abdominal Respiratory Hx Respiratory Disorders: Yes Cardiovascular Hx Cardiac Disorders: Yes Cardiac Disorders: Congenital Heart Disease, Deep Vein Thrombosis, High Cholesterol, Hypertension Neurological Hx Neurological Disorders: No Reproductive System Hx Reproductive Disorders: No Sexually Transmitted Disease: No HIV/AIDS: No Genitourinary Hx Genitourinary Disorders: No Gastrointestinal Hx Gastrointestinal Disorders: No Musculoskeletal Hx Musculoskeletal Disorders: Yes Musculoskeletal Disorders: Chronic Back Pain, Spasms Endocrine Hx Endocrine Disorders: No HEENT HX ENT Disorders: No Loss of Vision: Denies Cancer Hx Cancer: No Psychosocial Hx Psychiatric Problems: No Integumentary HX Skin/Integumentary Disorder: No Family Medical History Significant Family History: Cancer, COPD Family Medial History: Patient reports no known family medical history. Physical Exam Vital Signs Vital Sign - Last 12Hours 04/06/17 10:13 Temp 98.8 Pulse 88 Resp 18 B/P (MAP) 127/71 Pulse Ox 94 O2 Delivery Room Air Capillary Refill : Less Than 3 Seconds General Appearance: moderate distress HEENT: normal ENT inspection Neck: non-tender, full range of motion, supple, normal inspection Cardiovascular: normal peripheral pulses, regular rate, rhythm, no edema, no gallop, no JVD, no murmur Respiratory: decreased breath sounds Gastrointestinal: other Shoulder: asymmetry Progress/Results/Core Measures Results/Orders My Orders Orders - ALYSON CAR MD Hydromorphone Injection (Dilaudid Inject (04/06/17 11:00) Shoulder, Bilateral, 3 Views (04/06/17 11:58) Hydromorphone Injection (Dilaudid Inject (04/06/17 12:15) Chest 1 View, Ap/Pa Only (04/06/17 12:28) Medications Given in ED Current Medications Medications Dose Ordered Sig/Darlin Route Start Time Stop Time Status Last Admin Dose Admin Hydromorphone HCl 2 mg ONCE ONCE IVP 04/06/17 11:00 04/06/17 11:01 DC 04/06/17 10:56 2 MG Hydromorphone HCl 3 mg Q4H PRN IVP 04/06/17 12:15 04/06/17 12:37 3 MG Vital Signs/I&O Vital Sign - Last 12Hours 04/06/17 10:13 Temp 98.8 Pulse 88 Resp 18 B/P (MAP) 127/71 Pulse Ox 94 O2 Delivery Room Air Blood Pressure Mean: 89 Departure Communication Progress Notes 1448 the patient's options for obtaining better pain relief are explored. He has elected to go home with additional pain meds. In addition it appears that there is a fracture distal to the previously operated left humerus. We have no other films to compare Impression Impression: Primary Impression: severe bone pain/metastatic adenocarcinoma Disposition: ADMITTED INPATIENT Condition: Stable/Unchanged Departure-Patient Inst. Decision time for Depature: 14:49 Referrals: NO,LOCAL PHYSICIAN (PCP) Primary Care Physician Add. Discharge Instructions: All discharge instructions reviewed with patient and/or family. Voiced understanding Additional morphine has been given to you Report any decline in circumstance to your oncologist Scripts [Morphine IR] No Conflict Check 15 MG PO q6 HOURS, #30 Prov: ALYSON CAR MD 04/06/17 Morphine Sulfate (Morphine Sulfate ER) 60 Mg Cap.er.pel 60 MG PO 3 times a day, #20 CAP Prov: ALYSON CAR MD 04/06/17 ALYSON CAR MD Apr 06, 2017 12:05
[2017-04-06] MEDS: HYDROmorphone (DILAUDID) 2 MG/ML VIAL IVP PRN (12:37)
--- NOTE | 2017-04-06 12:52 | Diagnostic Imaging Report ---
Portable supine radiograph of the chest. INDICATION: Weakness. Fall. History of lung cancer. FINDINGS: There is a right chest wall mass with adjacent infiltrate or atelectasis. There is erosion of the upper right second rib. There is also right basilar opacity correlating with the mass seen on CT of 03/22/2017. The left lung is clear. The heart size is normal. No effusion or pneumothorax. The mediastinum and jaky appear unremarkable. IMPRESSION: There is a right basilar mass and right chest wall mass eroding the second rib. There is some infiltrate or atelectasis around the right basilar mass. Dictated by: Dictated on workstation # [id number]
--- NOTE | 2017-04-06 12:56 | Diagnostic Imaging Report ---
3 views of the shoulder obtained on both sides. INDICATION: History of cancer and bilateral shoulder pain. Recent fall. FINDINGS: In the left shoulder, there is an acute minimally angulated and impacted fracture along the proximal shaft of the humerus. This is just below the area of cement seen with underlying suggestion of infiltrative lytic tumor. There is no dislocation. The acromioclavicular joint demonstrates degenerative changes. The right shoulder demonstrates evidence of prior rotator cuff surgery with an anchor seen. There is an erosive mass eroding the lateral aspect of the second right rib. No acute fracture or dislocation. IMPRESSION: There is an acute minimally angulated and impacted fracture of the proximal shaft of the left humerus with suggestion of underlying infiltrative tumor. The findings were discussed with Dr. Newman at time of dictation. Dictated by: Dictated on workstation # [id number]
[2017-04-06] MEDS ORDERED: Morphine IR PO (14:59)
[2017-04-06] MEDS ORDERED: MORP60CA18 PO (14:59)
[2017-04-06 15:05] LABS: BILIRUBIN,URINE NEGATIVE (NEGATIVE); KETONES,URINE NEGATIVE (NEGATIVE); LEUKOCYTE ESTERASE ,URINE 3+ (NEGATIVE); NITRITE,URINE POSITIVE (NEGATIVE); PH,URINE 5 (5-9); PROTEIN,URINE 1+ (NEGATIVE); UROBILINOGEN,URINE NORMAL (NORMAL)
[2017-04-06 15:40] LABS: WBC,URINE TNTC /HPF
[2017-04-06] MEDS ORDERED: CEFD300C3 PO (15:51)
[2017-04-06 15:54] VITALS: BP 130/80
== END 2017-04-06 15:54 | disposition other institution (70) ==
LOC: EDUNIT# 10:13 → ER 10:14
DX: G89.3 Neoplasm related pain (acute) (chronic) (principal); C34.90 Malignant neoplasm of unspecified part of unspecified bronchus or lung; C79.51 Secondary malignant neoplasm of bone; W18.30XA Fall on same level, unspecified, initial encounter; I10 Essential (primary) hypertension; M54.9 Dorsalgia, unspecified; Z86.718 Personal history of other venous thrombosis and embolism; Q24.9 Congenital malformation of heart, unspecified; Z79.82 Long term (current) use of aspirin; F17.210 Nicotine dependence, cigarettes, uncomplicated
CPT/HCPCS: 51702; 71010; 81000; 87077; 87088; 87186